=== PATIENT | female | born 1960 | race Caucasian/White ===

== ENCOUNTER 2021-01-15 18:56 | Inpatient (IN) ==
[2021-01-15 19:18] LABS: Basophils # 0.1 10*3/uL (0.0-0.2); Basophils % 1.1 % (0.0-0.8); Eosinophils # 0.5 10*3/uL (0.0-0.87); Eosinophils % 4.8 % (0.00-10.9); Hematocrit 40.8 VOL% (35.7-47.0); Hemoglobin 13.3 GM/DL (12.0-16.0); Immature Granulocytes % 0.2 %; Immature Granulocytes Absolute 0.02 #; Lymphocytes # 3.1 10*3/uL (1.4-4.0); Lymphocytes % 27.9 % (21.3-54.2); Mean Corpuscular HGB Conc 32.6 GM/DL (32-36); Mean Corpuscular Volume 97.4 FL (87-102); Mean Platelet Volume 12.3 FL (9.6-12.0); Monocytes % 9.1 % (1.7-12.7); Neutrophils % 56.9 % (38.7-73.9); Platelet Count 266 T/CUMM (130-400); Red Blood Count 4.19 MC/CUMM (3.8-5.5); Red Cell Distribution Width 12.4 % (9.3-17.3); White Blood Count 11.2 T/CUMM (4-12)
[2021-01-15] MEDS ORDERED: ASPIRIN 325 MG TABLET PO STA (19:20)
[2021-01-15] MEDS ORDERED: NITROGLYCERIN SL 0.4 MG TABLET SL STA (19:25)
[2021-01-15 19:31] LABS: INR 0.9; PT Patient Result 10.3 SECS (10.5-12.0)
[2021-01-15 19:38] LABS: INR 0.9; PT Patient Result 10.2 SECS (10.5-12.0)
[2021-01-15 19:40] LABS: Eosinophils 6 % (0-10); Lymphocytes 34 % (20-55); Reactive Lymphocytes 1+; Segmented Neutrophils 56 % (50-85); Total Cells Counted 100
[2021-01-15 19:41] LABS: Hypochromasia 1+; Platelet Estimate Normal
[2021-01-15 19:44] LABS: Alanine Aminotransferase 19 U/L (13-56); Albumin 4.1 G/DL (3.4-5.0); Alkaline Phosphatase 84 U/L (45-117); Aspartate Amino Transferase 13 U/L (0-37); Bilirubin,Total < 0.39 MG/DL (0.2-1.0); Blood Urea Nitrogen 17 MG/DL (7-18); Calcium 9.9 MG/DL (8.5-10.1); Carbon Dioxide 30 MMOL/L (21-32); Estimated Glom Filtration Rate 91 ML/MIN; Glucose 173 MG/DL (74-106); Osmolality,Calculated 282.5 MOS/KG (273-304); Potassium 3.9 MMOL/L (3.5-5.1); Sodium 139 MMOL/L (136-145); Total Protein 7.6 G/DL (6.4-8.2)
[2021-01-15] MEDS ORDERED: METHOCARBAMOL 500 MG TABLET PO PRN (21:32)
[2021-01-15] MEDS ORDERED: MORPHINE 4 MG/1 ML VIAL IV PRN (21:33)
[2021-01-15] MEDS ORDERED: DEXTROSE 50% 25 GM/50 ML VIAL IV PRN (21:34)
[2021-01-15] MEDS ORDERED: GLUCAGON 1 MG VIAL IM PRN (21:34)
[2021-01-15] MEDS ORDERED: ATORVASTATIN 40 MG TABLET PO SCH (22:00)
[2021-01-15] MEDS ORDERED: ENOXAPARIN 40 MG/0.4 ML SYRINGE SUBCUT SCH (22:00)
[2021-01-16] MEDS: NITROGLYCERIN SL 0.4 MG TABLET SL PRN ×2 (00:37→00:44)
[2021-01-16] MEDS: INSULIN LISPRO 100 UNIT/ML SUBCUT SCH ×3 (00:51→13:54)
[2021-01-16 01:44] LABS: Basophils # 0.1 10*3/uL (0.0-0.2); Basophils % 1.2 % (0.0-0.8); Eosinophils # 0.5 10*3/uL (0.0-0.87); Eosinophils % 4.7 % (0.00-10.9); Hematocrit 38.5 VOL% (35.7-47.0); Immature Granulocytes % 0.2 %; Immature Granulocytes Absolute 0.02 #; Lymphocytes # 2.4 10*3/uL (1.4-4.0); Mean Corpuscular HGB Conc 33.8 GM/DL (32-36); Mean Corpuscular Volume 95.5 FL (87-102); Mean Platelet Volume 11.9 FL (9.6-12.0); Monocytes % 7.8 % (1.7-12.7); Neutrophils % 61.1 % (38.7-73.9); Platelet Count 225 T/CUMM (130-400); Red Blood Count 4.03 MC/CUMM (3.8-5.5); Red Cell Distribution Width 12.3 % (9.3-17.3); White Blood Count 9.8 T/CUMM (4-12)
[2021-01-16 02:03] LABS: Calcium 8.8 MG/DL (8.5-10.1); Osmolality,Calculated 282.3 MOS/KG (273-304); Potassium 3.5 MMOL/L (3.5-5.1); Risk Ratio 2.76
[2021-01-16] MEDS ORDERED: METOPROLOL TARTRATE 25 MG TABLET PO SCH (09:00)
[2021-01-16] MEDS ORDERED: ASPIRIN EC 325 MG TABLET PO SCH (09:00)
[2021-01-16 12:42] VITALS: BP 124/73
== END 2021-01-16 13:53 | disposition home or self-care (01) | DRG 313 ==
LOC: N.ED 18:56 → N.EDINP 21:29 → N.TELES 01-16 00:03
PROVIDERS: ADMIT Internal Medicine; ATTEND Internal Medicine